=== PATIENT | female | born 1955 | race Caucasian/White ===

== ENCOUNTER 2022-08-18 08:27 | Outpatient (CLI) | payer MEDICARE | END 2022-08-18 08:28 | disposition home or self-care (01) | LOC: MRI 08:27 | PROVIDERS: ATTEND Family Medicine | DX: M47.22 Other spondylosis with radiculopathy, cervical region (principal); M47.813 Spondylosis without myelopathy or radiculopathy, cervicothoracic region | CPT/HCPCS: 72141 ==

== ENCOUNTER 2022-11-02 09:26 | Outpatient (CLI) | payer MEDICARE ==
[2022-11-02] MEDS ORDERED: Iopamidol 370 76% 100 ML VIAL ONE (09:44)
== END 2022-11-02 09:27 | disposition home or self-care (01) ==
LOC: BICCT 09:26
PROVIDERS: ATTEND Urology
DX: N30.91 Cystitis, unspecified with hematuria (principal); R31.0 Gross hematuria; C20 Malignant neoplasm of rectum; R91.1 Solitary pulmonary nodule
CPT/HCPCS: 74178

== ENCOUNTER 2022-11-19 11:50 | Outpatient (CLI) | payer MEDICARE ==
[2022-11-19 13:19] LABS: #Eosinphils 0.1 10x3/uL (0.0-0.5); #Monocytes 0.4 10x3/uL (0.0-1.1); #Neutrophils 3.1 10x3/uL (1.5-8.4); %Basophils 0.6 % (0.0-2.0); %Eosinophils 2.1 % (0.0-6.0); %Lymphocytes 31.3 % (18.0-47.0); %Monocytes 7.1 % (0.0-10.0); %Neutrophils 58.7 % (40.0-75.0); Hemoglobin 13.3 g/dL (12.0-15.5); Mean Corpuscular HGB CONC 31.8 g/dL (32.0-36.0); Mean Corpuscular Hemoglobin 27.7 pg (27.0-33.0); Mean Corpuscular Volume 87.1 fl (81.6-98.3); Mean Platelet Volume 8.9 fl (7.4-10.4); Platelet Count 276 10x3/uL (150-450); RBC Distribution Width 15.5 % (11.5-14.5); White Blood Cell (WBC) Count 5.2 10x3/uL (3.5-10.5)
[2022-11-19 13:30] LABS: Prothrombin Time 10.3 sec (9.5-12.1)
[2022-11-19 13:31] LABS: Anion Gap 15 mmol/L (10-20); BUN (Urea Nitrogen) 19 mg/dL (9.8-20.1); Calc. Creatinine Clearance 0 mL/min (70-130); Calcium 9.6 mg/dL (7.8-10.44); Carbon Dioxide 24 mmol/L (23-31); Chloride 106 mmol/L (98-107); Estimated GFR 84; Glucose 104 mg/dL (80-115); Potassium 4.5 mmol/L (3.5-5.1); Sodium 140 mmol/L (136-145)
== END 2022-11-19 11:51 | disposition home or self-care (01) ==
LOC: LABBT 11:50
PROVIDERS: ATTEND Orthopaedic Surgery
DX: Z01.812 Encounter for preprocedural laboratory examination (principal); M16.12 Unilateral primary osteoarthritis, left hip
CPT/HCPCS: 80048; 85025; 85610; 87081; 93005; 93010

== ENCOUNTER 2022-11-23 05:36 | Observation (INO) | payer MEDICARE ==
[2022-11-19 12:46] VITALS: BMI 34.0
[2022-11-23] MEDS ORDERED: Tranexamic Acid 1,000 MG/10 ML VIAL ONE (06:05)
[2022-11-23] MEDS ORDERED: Sodium Chloride 0.9% 100 ML ONE ×2 (06:05→06:50)
[2022-11-23] MEDS ORDERED: Midazolam HCl 2 mg/2 ml Vial ONE (06:28)
[2022-11-23] MEDS ORDERED: fentaNYL 50 mcg/mL 1 mL Vial ONE (06:28)
[2022-11-23] MEDS ORDERED: Vancomycin (BATCH) 1.5 GRAM/300 ML BAG ONE (06:43)
[2022-11-23] MEDS ORDERED: Lidocaine 1.5% w/Epi 1:200K 30 ML VIAL (Epid Use) ONE (06:50)
[2022-11-23] MEDS ORDERED: CEFAZOLIN 2 GM VIAL ONE (06:50)
[2022-11-23] MEDS ORDERED: Acetaminophen 325 MG TAB PO PRN (06:54)
[2022-11-23] MEDS ORDERED: Promethazine HCl 25 MG/ML VIAL IM PRN ×3 (06:54→09:33)
[2022-11-23] MEDS ORDERED: diphenhydrAMINE 25 MG CAP PO PRN ×2 (06:54→08:00)
[2022-11-23] MEDS ORDERED: Ondansetron PF 4 MG/2 ML Vial IVP PRN ×2 (06:54→08:00)
[2022-11-23] MEDS ORDERED: Zolpidem Tartrate 5 MG TAB PO PRN ×2 (06:54→08:00)
[2022-11-23] MEDS ORDERED: Ropivacaine 0.2% HCl/PF 20 ML ONE (07:20)
[2022-11-23] MEDS ORDERED: Fentanyl 250 MCG/5 ML VIAL ONE (07:21)
[2022-11-23] MEDS ORDERED: ePHEDrine Sulfate 50 MG/10 ML VIAL ONE (07:22)
[2022-11-23] MEDS ORDERED: Rocuronium Bromide 10 MG/ML (10ML VIAL) ONE (07:22)
[2022-11-23] MEDS ORDERED: Dexamethasone 20 MG/5 ML VIAL ONE (07:22)
[2022-11-23] MEDS ORDERED: PHENYLEPHRINE-NS 100 MCG/ML 10 ML SYRINGE ONE (07:22)
[2022-11-23] MEDS ORDERED: Ondansetron PF 4 MG/2 ML Vial ONE (07:22)
[2022-11-23] MEDS ORDERED: Lidocaine 1% PF 5 ML VIAL ONE (07:22)
[2022-11-23] MEDS ORDERED: PROPOFOL 200 MG/20 ML VIAL ONE (07:22)
[2022-11-23] MEDS ORDERED: SUGAMMADEX SODIUM 200 MG/2 ML VIAL ONE (07:53)
[2022-11-23] MEDS ORDERED: FENTANYL 500 MCG/10 ML VIAL 500 MCG, Bupivacaine 0.75% 10 ML in Sodium Chloride 0.9% 80 ML EPIDURAL SCH (08:00)
[2022-11-23] MEDS ORDERED: Naloxone HCl 0.4 mg/ml Vial IV PRN (08:00)
[2022-11-23] MEDS ORDERED: Moisturizing Cream (Eucerin) 113 GM JAR TOP PRN (08:00)
[2022-11-23] MEDS ORDERED: Promethazine HCl 25 MG SUPP PR PRN (08:00)
[2022-11-23] MEDS ORDERED: diphenhydrAMINE 50 MG/ML VIAL IM PRN (08:00)
[2022-11-23] MEDS ORDERED: traMADol HCl 50 MG TAB PO PRN ×2 (08:00)
[2022-11-23] MEDS ORDERED: diphenhydrAMINE 50 MG/ML VIAL IVP PRN (08:00)
[2022-11-23] MEDS ORDERED: Naloxone HCl 0.4 mg/ml Vial IVP PRN (08:00)
[2022-11-23] MEDS ORDERED: HYDROcodone/Acetaminophen 5/325 mg Tablet PO PRN ×2 (08:00)
[2022-11-23] MEDS ORDERED: Bupivacaine 0.25% 10 ML VIAL EPIDURAL PRN (08:00)
[2022-11-23] MEDS ORDERED: HYDROmorphone 2 MG/ML VIAL SLOW IVP PRN (09:33)
[2022-11-23] MEDS ORDERED: Ondansetron HCl/PF 4 MG/2 ML Vial IVP PRN (09:33)
[2022-11-23] MEDS: Aspirin 81 mg Enteric Coated Tablet PO SCH ×2 (10:48→21:12)
[2022-11-23] MEDS: Ketorolac Tromethamine 30 MG/ML VIAL IVP SCH ×3 (13:54→23:42)
[2022-11-23] MEDS: CEFAZOLIN 2 GM in Sodium Chloride 0.9% 100 ML IVPB SCH ×2 (14:41→23:31)
[2022-11-23] MEDS: Sodium Chloride 0.9% 1,000 ML IV SCH ×2 (14:48→17:47)
[2022-11-23] MEDS ORDERED: SODIUM CHLORIDE 0.9% EPIDURAL SCH (19:00)
[2022-11-23] MEDS ORDERED: BUPIVACAINE 0.75% EPIDURAL SCH (19:00)
[2022-11-24] MEDS: Sodium Chloride 0.9% 1,000 ML IV SCH ×3 (01:20→23:31)
[2022-11-24 06:22] LABS: Hemoglobin 11.5 g/dL (12.0-16.0); Mean Corpuscular HGB CONC 33.7 g/dL (32.0-36.0); Mean Corpuscular Hemoglobin 29.8 pg (27.0-31.0); Mean Corpuscular Volume 88.4 fl (78.0-98.0); Mean Platelet Volume 7.6 fL (7.4-10.4); Platelet Count 208 10x3/uL (130-400); RBC Distribution Width 14.1 % (11.5-14.5); Red Blood Cell (RBC) Count 3.85 mill/uL (4.20-5.40); White Blood Cell (WBC) Count 8.8 10x3/uL (4.8-10.8)
[2022-11-24] MEDS: Ketorolac Tromethamine 30 MG/ML VIAL IVP SCH ×4 (07:24→23:31)
[2022-11-24] MEDS: Aspirin 81 mg Enteric Coated Tablet PO SCH ×2 (09:06→20:02)
[2022-11-24] MEDS: Senokot S 8.6-50 MG TAB PO SCH ×2 (09:06→23:31)
[2022-11-24] MEDS: Multivitamin W/ Minerals 1 TAB PO SCH (09:06)
[2022-11-24] MEDS: Ferrous Gluconate 324 MG TAB PO SCH ×2 (09:06→16:54)
[2022-11-24] MEDS ORDERED: HYDROcodone/Acetaminophen 10/325 mg Tablet PO PRN (09:46)
[2022-11-24] MEDS: HYDROcodone/Acetaminophen 10/325 mg Tablet PO PRN ×2 (11:18→20:02)
[2022-11-25] MEDS: HYDROcodone/Acetaminophen 10/325 mg Tablet PO PRN ×2 (04:38→08:48)
[2022-11-25 06:07] LABS: Hemoglobin 10.9 g/dL (12.0-16.0); Mean Corpuscular HGB CONC 33.3 g/dL (32.0-36.0); Mean Corpuscular Hemoglobin 29.8 pg (27.0-31.0); Mean Corpuscular Volume 89.5 fl (78.0-98.0); Mean Platelet Volume 7.6 fL (7.4-10.4); Platelet Count 192 10x3/uL (130-400); Red Blood Cell (RBC) Count 3.64 mill/uL (4.20-5.40); White Blood Cell (WBC) Count 6.7 10x3/uL (4.8-10.8)
[2022-11-25] MEDS: Ketorolac Tromethamine 30 MG/ML VIAL IVP SCH (07:47)
[2022-11-25 08:41] VITALS: BP 137/84; TEMP 98.4
[2022-11-25] MEDS: Ferrous Gluconate 324 MG TAB PO SCH (08:48)
[2022-11-25] MEDS: Sodium Chloride 0.9% 1,000 ML IV SCH (08:48)
[2022-11-25] MEDS: Multivitamin W/ Minerals 1 TAB PO SCH (08:48)
[2022-11-25] MEDS: Aspirin 81 mg Enteric Coated Tablet PO SCH (08:48)
[2022-11-25] MEDS: Senokot S 8.6-50 MG TAB PO SCH (08:49)
== END 2022-11-25 10:25 | disposition home or self-care (01) ==
LOC: SDC 05:36 → SURG B 10:30
PROVIDERS: ADMIT Orthopaedic Surgery; ATTEND Orthopaedic Surgery
PROC: 0SRB04A Replacement of Left Hip Joint with Ceramic on Polyethylene Synthetic Substitute, Uncemented, Open Approach (ICD-10-PCS; principal; 2022-11-23)
DX: M16.12 Unilateral primary osteoarthritis, left hip (principal); I10 Essential (primary) hypertension; E03.9 Hypothyroidism, unspecified; E78.2 Mixed hyperlipidemia; Z85.048 Personal history of other malignant neoplasm of rectum, rectosigmoid junction, and anus; Z79.890 Hormone replacement therapy; Z79.899 Other long term (current) drug therapy; Z96.653 Presence of artificial knee joint, bilateral
CPT/HCPCS: 27130; 72170; 73502; 85027 ×2; 97110 ×2; 97116 ×3; 97530 ×3; 97535 ×2; C1776; J3010 ×2; J3370; 36415; J1100; J1200; J1885; J2001; J2250; J2405; J2704; J2795; J3490; J7050

== ENCOUNTER 2024-04-19 10:22 | Outpatient (CLI) | payer MEDICARE ==
[2024-04-19 12:04] LABS: #Basophils Less than 0.03 10x3/uL (0.0-0.2); %Basophils 0.4 % (0.0-1.0); %Eosinophils 1.7 % (0.0-10.0); %Lymphocytes 32.8 % (21.0-51.0); %Neutrophils 57.9 % (42.0-75.0); Hematocrit 44.4 % (36.0-47.0); Hemoglobin 14.4 g/dL (12.0-16.0); Mean Corpuscular HGB CONC 32.4 g/dL (32.0-36.0); Mean Corpuscular Hemoglobin 27.6 pg (27.0-31.0); Mean Corpuscular Volume 85.2 fL (78.0-98.0); Mean Platelet Volume 9.9 fL (7.4-10.4); Platelet Count 268 10x3/uL (130-400); RBC Distribution Width 14.5 % (11.5-14.5); Red Blood Cell (RBC) Count 5.21 mill/uL (4.20-5.40)
[2024-04-19 12:21] LABS: Anion Gap 10 mmol/L (10-20); BUN (Urea Nitrogen) 19 mg/dL (9.8-20.1); Calc. Creatinine Clearance 0 mL/min (70-130); Calcium 9.7 mg/dL (7.8-10.44); Carbon Dioxide 24 mmol/L (23-31); Chloride 108 mmol/L (98-107); Estimated GFR 94; Glucose 98 mg/dL (80-115); Sodium 138 mmol/L (136-145)
== END 2024-04-19 10:23 | disposition home or self-care (01) ==
LOC: LABBT 10:22
PROVIDERS: ATTEND Orthopaedic Surgery
DX: Z01.818 Encounter for other preprocedural examination (principal); M70.62 Trochanteric bursitis, left hip
CPT/HCPCS: 80048; 85025; 93005; 93010

== ENCOUNTER 2024-04-26 07:14 | Observation (INO) | payer MEDICARE ==
[2024-04-19 10:36] VITALS: BMI 35.4
[2024-04-26] MEDS ORDERED: Tranexamic Acid 1,000 MG/10 ML VIAL ONE (08:38)
[2024-04-26] MEDS ORDERED: Sodium Chloride 0.9% 100 ML ONE ×2 (08:38→10:06)
[2024-04-26] MEDS ORDERED: Vancomycin (BATCH) 1.5 GM/300 ML BAG ONE (08:38)
[2024-04-26] MEDS ORDERED: Scopolamine 1 mg/72 hour Patch ONE (09:00)
[2024-04-26] MEDS ORDERED: fentaNYL PF 100 MCG/2 ML SYRINGE ONE (09:09)
[2024-04-26] MEDS ORDERED: PROPOFOL 20 ML ONE (09:09)
[2024-04-26] MEDS ORDERED: Lidocaine 1% PF 5 ML VIAL ONE (09:09)
[2024-04-26] MEDS ORDERED: Rocuronium Bromide 10 MG/ML (10ML VIAL) ONE (09:09)
[2024-04-26] MEDS ORDERED: fentaNYL 50 mcg/mL 1 mL Vial ONE ×2 (09:10→13:22)
[2024-04-26] MEDS ORDERED: EPINEPHrine 1 MG/ML VIAL ONE (09:10)
[2024-04-26] MEDS ORDERED: Bupivacaine PF 0.5% 30 ML VIAL ONE (09:11)
[2024-04-26] MEDS ORDERED: Midazolam HCl 2 mg/2 ml Vial ONE (09:11)
[2024-04-26] MEDS ORDERED: CEFAZOLIN 2 GM VIAL ONE (10:06)
[2024-04-26] MEDS ORDERED: PHENYLEPHRINE-NS 100 MCG/ML 10 ML SYRINGE ONE (10:52)
[2024-04-26] MEDS ORDERED: ePHEDrine Sulfate 50 MG/10 ML VIAL ONE (11:12)
[2024-04-26] MEDS ORDERED: Ondansetron PF 4 MG/2 ML Vial ONE (11:50)
[2024-04-26] MEDS ORDERED: SUGAMMADEX SODIUM 200 MG/2 ML VIAL ONE (12:02)
[2024-04-26] MEDS ORDERED: Ondansetron HCl/PF 4 MG/2 ML Vial IVP PRN (12:27)
[2024-04-26] MEDS ORDERED: Promethazine HCl 25 MG/ML VIAL IM PRN ×2 (12:27→13:41)
[2024-04-26] MEDS ORDERED: Promethazine HCl 25 MG/ML VIAL ONE (13:32)
[2024-04-26] MEDS ORDERED: Acetaminophen 325 MG TAB PO PRN (13:41)
[2024-04-26] MEDS ORDERED: HYDROcodone/Acetaminophen 5/325 mg Tablet PO PRN ×2 (13:41)
[2024-04-26] MEDS ORDERED: fentaNYL 50 mcg/mL 1 mL Vial SLOW IVP PRN (13:41)
[2024-04-26] MEDS ORDERED: Milk Of Magnesia 30 ML UDCUP PO PRN (13:41)
[2024-04-26] MEDS ORDERED: Bisacodyl 10 MG SUPP PR PRN (13:41)
[2024-04-26] MEDS ORDERED: traMADol HCl 50 MG TAB PO PRN ×2 (13:41)
[2024-04-26] MEDS ORDERED: PHARMACY TO RENALLY ADJUST ABX FS SCH (13:45)
[2024-04-26] MEDS ORDERED: FLU (Fluad Triv) TS24-25 (65UP)/MF59C/PF 45 MCG/0.5 ML Syringe IM ONE (18:00)
[2024-04-26] MEDS: CEFAZOLIN 2 GM in Sodium Chloride 0.9% 100 ML IVPB SCH (18:01)
[2024-04-26] MEDS: Ketorolac Tromethamine 30 MG (1 mL) VIAL IVP SCH (18:02)
[2024-04-26] MEDS: Morphine 4 MG/ML VIAL SLOW IVP PRN (18:02)
[2024-04-26] MEDS: Ondansetron PF 4 MG/2 ML Vial SLOW IVP PRN (18:07)
[2024-04-26] MEDS: Aspirin 81 mg Enteric Coated Tablet PO SCH (21:16)
[2024-04-27 08:30] VITALS: BP 124/72; TEMP 99.1
== END 2024-04-27 11:34 | disposition home or self-care (01) ==
LOC: SDC 07:14 → SURG A 16:46
PROVIDERS: ADMIT Orthopaedic Surgery; ATTEND Orthopaedic Surgery
PROC: 0QS904Z Reposition Left Femoral Shaft with Internal Fixation Device, Open Approach (ICD-10-PCS; principal; 2024-04-26)
DX: S72.492A Other fracture of lower end of left femur, initial encounter for closed fracture (principal); M70.62 Trochanteric bursitis, left hip; M84.352A Stress fracture, left femur, initial encounter for fracture; X58.XXXA Exposure to other specified factors, initial encounter
CPT/HCPCS: 27514; 73552; 97116 ×2; C1713 ×7; J0171; J0665; J1885 ×2; J2250; J2272; J2405; J2550; J2704; J3010; J3370